=== PATIENT | male | born 1965 | race Caucasian/White ===

== ENCOUNTER → 2016-05-10 | Outpatient (REF) ==
[~2016-05-10] MED LIST: ALPHA LIPOIC A PO; CALCIFEROL50000 IU PO; IPRATROPIUM BROM3 M1 IH; MEN'S MULTIVITA1 TAB PO; NO HOME MEDICATIONS; ULTRAM 50MG TAB50 MG PO; VENTOLIN0.09 MG IH; VITAMIN C BUFF500 MG PO
== END ==
LOC: ZLAB.WCH 12:13
DX: Z01.89 Encounter for other specified special examinations (principal)

== ENCOUNTER → 2016-05-11 | Outpatient (REF) | LOC: ZLAB.WCH 13:48 | DX: Z01.89 Encounter for other specified special examinations (principal) ==

== ENCOUNTER 2017-03-21 13:29 | Outpatient (CLI) | payer BC ==
[~2017-03-21] VITALS: Ht 175.3 cm; Wt 225.0 kg
[2017-03-21] MEDS ORDERED: VICTOZA6 MG/ML SQ (13:47)
[2017-03-21] MEDS ORDERED: NOVOLOG 100U100 U/M1 SQ (13:48)
[2017-03-21] MEDS ORDERED: HCTZ 25MG TAB25 MG PO (13:49)
[2017-03-21] MEDS ORDERED: LASIX 40MG TABL40 MG PO (13:49)
[2017-03-21] MEDS ORDERED: LEVEMIR100 U/ML SQ (13:49)
[2017-03-21] MEDS ORDERED: BACTRIM DS 8001 TAB PO (13:50)
[2017-03-21 13:53] VITALS: BP 154/102; PULSE 83; TEMP 98.4
== END 2017-03-21 14:50 | disposition home or self-care (01) ==
LOC: EUO 13:29
DX: L02.416 Cutaneous abscess of left lower limb (principal); L03.90 Cellulitis, unspecified; R91.1 Solitary pulmonary nodule
CPT/HCPCS: C1751; C1894

== ENCOUNTER 2019-12-13 17:38 | Inpatient (IN) | payer BC ==
[2019-12-13] VITALS (29 sets, daily range): BP systolic 98–101; BP diastolic 71–73; PULSE 115–123; TEMP 98.6; O2SAT 88–95
[~2019-12-13] VITALS: Ht 175.3 cm; Wt 211.4 kg
[~2019-12-13 17:38] MED LIST changes: +BACTRIM DS 8001 TAB PO; +HCTZ 25MG TAB25 MG PO; +LASIX 40MG TABL40 MG PO; +LEVEMIR100 U/ML SQ; +NOVOLOG 100U100 U/M1 SQ; +VICTOZA6 MG/ML SQ
[2019-12-13 18:05] LABS: ARTERIAL BLD GAS O2 SATURATION 95.3 % (92-100); ARTERIAL BLD GAS TCO2 CT 21.3; ARTERIAL BLOOD GAS BASE EXCESS -3.2 (-2-2); ARTERIAL BLOOD GAS HCO3 20.3 meq/L (22-26); ARTERIAL BLOOD GAS PCO2 32.6 mmHg (35-45); ARTERIAL BLOOD GAS PO2 77.6 mmHg (80-100); ARTERIAL BLOOD GAS pH 7.41 (7.35-7.45)
[2019-12-13 18:35] LABS: ALBUMIN 4.4 gm/dL (3.5-5.0); BILIRUBIN,TOTAL 0.6 mg/dL (0.0-1.0); CALCIUM 9.4 mg/dL (8.4-10.2); CREATININE, serum 1.46 (0.66-1.25); POTASSIUM 4.7 mmol/L (3.4-5.0); TOTAL PROTEIN 8.2 gm/dL (6.4-8.2)
[2019-12-13 18:42] LABS: BASO # 0.1 (0.0-0.2); BASO % 0.6 % (0.0-2.0); EOS # 0.2 (0.0-0.7); EOS % 1.8 % (0-4.0); GRAN # 6.4 (1.4-6.5); GRAN % 74.1 % (42.2-75.2); HEMATOCRIT 46.2 % (42.0-52.0); HEMOGLOBIN 14.7 g/dl (13.5-18.0); LYMPH # 1.5 (1.2-3.4); LYMPH % 17.7 % (20.0-51.0); MEAN CELL VOLUME 97 fl (80.0-100.0); MEAN CORPUSCULAR HEMOGLOBIN 31 pg (27.0-31.0); MEAN CORPUSCULAR HGB CONC 32 g/dl (33.0-37.0); MONO # 0.5 (0.1-0.6); MONO % 5.5 % (1.7-9.3); PLATELET COUNT 216 K/mm3 (130-400); RED BLOOD COUNT 4.75 M/mm3 (4.20-5.60); REDCELL DISTRIBUTION WIDTH-CV 13.6 % (11.5-14.5)
[2019-12-13 18:47] LABS: TROPONIN-I 0.035 ng/mL (0.000-0.035)
[2019-12-13] MEDS ORDERED: GLUCOPHAGE500 MG/TAB PO (21:13)
[2019-12-13] MEDS ORDERED: PRINZIDE 12.5 M1 TAB PO (21:13)
[2019-12-13 23:20] LABS: PARTIAL THROMBOPLASTIN TIME 31.7 SECONDS (26.0-37.0)
--- NOTE | 2019-12-13 23:40 | NUR ---
Arrived to the unit via stretcher. Patient in moderate distress. Very anxious with transfer from ER to ICU bed, but alert and oriented and able to follow commands. Attached to all monitors. Patient in Afib RVR with HR up to 120's. RT at bedside to assist with BIPAP.
--- NOTE | 2019-12-13 23:45 | NUR ---
Hospitalist notified that patient was on low dose heparin protocol upon arrival to unit. Received order to switch to high dose protocol at this time. Will draw hepXa at next scheduled time.
[2019-12-14] VITALS (108 sets, daily range): BP systolic 0–114; BP diastolic 0–99; PULSE 65–103; O2SAT 6–95
[2019-12-14 00:19] LABS: ARTERIAL BLD GAS O2 SATURATION 95.7 % (92-100); ARTERIAL BLD GAS TCO2 CT 21.2; ARTERIAL BLOOD GAS BASE EXCESS -4.7 (-2-2); ARTERIAL BLOOD GAS HCO3 20.1 meq/L (22-26); ARTERIAL BLOOD GAS PCO2 36.8 mmHg (35-45); ARTERIAL BLOOD GAS PO2 76.5 mmHg (80-100); ARTERIAL BLOOD GAS pH 7.36 (7.35-7.45)
--- NOTE | 2019-12-14 01:30 | NUR ---
Heparin drip rate increased by 1 ml/hr following hepXA results per protocol
--- NOTE | 2019-12-14 03:00 | NUR ---
Notified hospitalist that patient was very anxious and continues to report right sided chest pain. Received order for PRN ativan and to give one additional dose of prn morphine.
--- NOTE | 2019-12-14 03:00 | NUR ---
Patient requesting help to use urinal frequently, however has been unable to sucessfuly void. Bladder scan shows 9ml, however body habitus makes scanning difficult. Recieved telephone order from hospitalist to place jean catheter.
--- NOTE | 2019-12-14 03:30 | NUR ---
Inserted jean cateter; received approximately 150ml of natty colored urine. Patient reported feeling immediate relief upon insertion.
--- NOTE | 2019-12-14 04:00 | NUR ---
Patient very anxious and crying out. Saying "I'm sorry, I'm sorry." Patient restless in bed. Attempted to Calm patient with no success. Reports that he just "can't do it anymore". Hospitalist called and requested that she come and visualize patient. RT also notified and at bedside.
[2019-12-14 04:17] LABS: ARTERIAL BLD GAS O2 SATURATION 90.6 % (92-100); ARTERIAL BLD GAS TCO2 CT 16.1; ARTERIAL BLOOD GAS BASE EXCESS -11.7 (-2-2); ARTERIAL BLOOD GAS PO2 67.6 mmHg (80-100); ARTERIAL BLOOD GAS pH 7.23 (7.35-7.45)
--- NOTE | 2019-12-14 04:30 | NUR ---
Attempted to call ; no reply. Left voicemail. Will await return call.
--- NOTE | 2019-12-14 04:40 | NUR ---
Anesthesia arrived at bedside for intubation
--- NOTE | 2019-12-14 04:54 | NUR ---
At approximately 0454 patient began bradying down to 40's post intubation. Pt noted to be in PEA; CPR inititated. See code record for detail.
--- NOTE | 2019-12-14 05:17 | NUR ---
CANDIDO Henley unable to get ahold of patient's . Contacted [facility] at this time to help with family notification.
[2019-12-14 05:33] LABS: CALCIUM 8.1 mg/dL (8.4-10.2); CREATININE, serum 1.95 (0.66-1.25)
[2019-12-14 05:34] LABS: POTASSIUM 7.1 mmol/L (3.4-5.0)
[2019-12-14 05:53] LABS: TROPONIN-I 0.173 ng/mL (0.000-0.035)
--- NOTE | 2019-12-14 06:10 | NUR ---
Patient in respiratory distress, intubated at 0440 by charlotte with a 8.0 ETT, 26@TEETH, BILATERAL BREATH SOUNDS WERE HEARD BILATERAL, YELLOW WAS SEEN ON ENDTIDAL. SOON AFTER INTUBATION PATIENT STARTED TO SAUL DOWN AND HEART RATE WENT TO 30S. PATIENT HAD NO PULSE AND COMPRESSIONS WERE STARTED. AFTER CHEST X-RAY WAS OBTAINED, CELESTINO TOLBERT WANTED THE ETT PULLED OUT BY 1. ETT IS NOW 25@TEETH.
--- NOTE | 2019-12-14 06:24 | NUR ---
Contacted [facility] and spoke with Kyra. Patient not a candidate for donation at this time per [facility]. Referral #[id number].
--- NOTE | 2019-12-14 08:24 | NUR ---
Instructed per hospitalist to increase to max doseage of levophed at this time.
--- NOTE | 2019-12-14 08:27 | NUR ---
Changed levophed to double concentration at this time.
--- NOTE | 2019-12-14 09:01 | NUR ---
[facility] made aware of patients and will be here to pick patient up soon. Home is familiar with the patient.
--- NOTE | 2019-12-14 09:33 | NUR ---
Body released to home of choice. Belongings taken home by , but wedding ring to Right 3rd finger with patient per 's request
--- NOTE | 2019-12-14 10:15 | NUR ---
Initial visit; Water Filtration Technician visited with patient's sister, then offered her condolences and prayer for family who were experiencing grief, and patient.
== END 2019-12-14 09:33 | disposition expired | DRG 175 ==
LOC: COL.ER 17:38 → ICU 21:37
PROVIDERS: Emergency Medicine; Nurse Practitioner Family; ADMIT Student in an Organized Health Care Education/Training Program
PROC: 0BH17EZ Insertion of Endotracheal Airway into Trachea, Via Natural or Artificial Opening (ICD-10-PCS; principal; 2019-12-13)
DX: I26.99 Other pulmonary embolism without acute cor pulmonale (principal); J96.01 Acute respiratory failure with hypoxia; I21.4 Non-ST elevation (NSTEMI) myocardial infarction; N17.9 Acute kidney failure, unspecified; Z68.44 Body mass index [BMI] 60.0-69.9, adult; I48.91 Unspecified atrial fibrillation; J45.909 Unspecified asthma, uncomplicated; I46.9 Cardiac arrest, cause unspecified; E66.01 Morbid (severe) obesity due to excess calories; I87.8 Other specified disorders of veins; I49.3 Ventricular premature depolarization; I10 Essential (primary) hypertension; R91.8 Other nonspecific abnormal finding of lung field; I95.9 Hypotension, unspecified; E11.9 Type 2 diabetes mellitus without complications; K76.0 Fatty (change of) liver, not elsewhere classified; Z20.828 Contact with and (suspected) exposure to other viral communicable diseases; Z79.4 Long term (current) use of insulin; Z87.891 Personal history of nicotine dependence
CPT/HCPCS: 99223-AI; 99239; J0171; J0330; J1160; J1644; J2060; J2270; J2704; J7030; Q9967